=== PATIENT | female | born 1930 | race Caucasian/White ===

== ENCOUNTER 2016-08-22 10:53 | Inpatient (IN) ==
[2016-08-22] MEDS ORDERED: ACETAMINOPHEN 325 MG TABLET PO PRN (11:36)
[2016-08-22] MEDS ORDERED: ONDANSETRON 4 MG/2 ML VIAL IV PRN (11:36)
--- NOTE | 2016-08-22 12:56 | Family Practice History&Phys ---
Assessment and Plan (1) Uncontrolled hypertension Status: Acute Assessment and plan: 08/22/2016: Treatment of her hypertension is underway. Current Visit: Yes (2) Retinal hemorrhage of right eye Status: Acute Assessment and plan: 08/22/2016: Patient has been followed by Dr. Sherman in [place] for this. She will resume care by him after her blood pressure is improved. Current Visit: Yes History of Present Illness Chief complaint: Headache, right eye pain and hypertension History of present illness: Ms. Arredondo is a 86 year old female Patient is 78-year-old white female presents to the office complaining of headache and hypertension. Patient states she recently told her blood pressure is very elevated when she saw the reproduction production manager was found to have a retinal hemorrhage on the right. Her blood pressure was over 200/120 at that time. When she came to the office it was 203/120. Patient is complaining of mild headache which is diffuse but she denies any lateralizing weakness or paresthesias. Patient states he was feeling fine until she started having her headache in this change in her vision. She saw Dr. Sherman in [place] who recommended she come see me which she did today. She denies any chest pain, palpitations or shortness of breath. Home Medications Medication Instructions Recorded Confirmed Type Metoprolol Tartrate 50 mg PO DAILY 01/11/15 01/11/15 History Multivitamin (Centrum) [Centrum 1 tablet PO DAILY 01/11/15 01/11/15 History Tab] Pantoprazole Tab [Protonix Tab] 40 mg PO DAILY@0730 #30 tablet 01/12/15 Rx amLODIPine [Norvasc] 5 mg PO BID tablet 01/12/15 Rx Allergies Allergy/AdvReac Type Severity Reaction Status Date / Time meperidine [From Demerol] AdvReac Mild Nausea Verified 01/11/15 09:51 - Constitutional Constitutional: Absent: chills, fatigue, fever(s), weakness - EENT Eyes: Present: blurry vision, loss of vision Ears: Absent: decreased hearing, ear pain Nose, mouth and throat: Absent: hoarseness, nasal congestion, sinus pressure, sore throat - Cardiovascular Cardiovascular: Absent: chest pain at rest, chest pain with activity, orthopnea , palpitations, PND - Respiratory Respiratory: Absent: cough, dyspnea, wheezing - Gastrointestinal Gastrointestinal: Absent: abdominal pain, diarrhea, dyspepsia, dysphagia, nausea , vomiting - Genitourinary Genitourinary: Absent: difficulty urinating, urinary frequency, urinary hesitancy - Musculoskeletal Musculoskeletal: Absent: arthralgias, back pain - Neurological Neurological: Present: headache(s). Absent: abnormal gait, abnormal speech, confusion, focal weakness, numbness, paresthesias - Psychiatric Psychiatric: Absent: anxiety, confusion, depression - Endocrine Endocrine: Absent: fatigue, polydipsia, polyphagia - Hematologic/Lymphatic Hematologic/Lymphatic: Absent: easy bleeding, easy bruising Medical,Surgical,& Family Hx - Medical History Cardio: History of: Hypertension Neurology: History of: Migraine Gastrointestinal: History of: Diverticulitis/ Diverticulosis No history of: GERD, Gastrointestinal Bleed - Surgical History Abdominal Surgeries: Surgical HX of: Abdominal Surgery (benign tumors removed), Appendectomy, Cholecystectomy Reproductive Surgeries: Surgical HX of;: Section (2), Gynecologic Surgery (she had surgery for pelvic masses on 3 occasions.), Hysterectomy ( complete) - Family History Family History: Reports;: Family Cancer (Brothers, sister, daddy GI ca) Denies;: Family Diabetes, Family Heart Disease, Family Hypertension, Family Psychiatric Problems, Family Stroke - Social History Smoking Status: Never smoker Exam - Constitutional Exam: General: Objective patient is a well-developed white female in no acute distress. Patient is able give an excellent history. HEENT: Pupils equal and reactive to light. Patent nares and airway Neck: No meningismus, adenopathy, thyromegaly. There are no auscultated carotid bruits. Cardiovascular: Regular rhythm. No murmurs or gallops Chest: Clear to auscultation without rales rhonchi wheezes. Abdomen: Soft nontender to palpation No masses, rebound, guarding or tenderness. Neuro: Cranial nerves intact and DTRs and strength symmetric in all extremities. Dermatologic: No evidence of abnormal lesions or masses. Musculoskeletal: There is no joint swelling or tenderness or deformity. Extremities: There is no calf swelling or tenderness.
--- NOTE | 2016-08-22 13:14 | CT Report ---
CT of the head without contrast. Indication: Vision loss. Hypertension. No previous study. There is heavy calcific plaque present within the intracranial internal carotid arteries. The ventricles are normal in size and configuration. There is generalized atrophy of aging. There is no mass effect, midline shift, or area of hemorrhage. There are moderate areas of low density in the periventricular white matter, likely related to chronic microvascular ischemia. No cortical infarcts are seen. The calvarium is intact. The included paranasal sinuses and the mastoid air cells are clear. Impression: Generalized atrophy. White matter changes likely attributable to chronic microvascular ischemia. No acute intracranial process is seen. The CT exam was performed using one or more of the following dose reduction techniques: Automated exposure control, adjustment of the mA and/or kV according to patient size, or use of iterative reconstruction technique. PROCEDURE INTERPRETED AT [facility] DEPARTMENT OF RADIOLOGY Final Report Signed by: Dr. Bettina Mendoza
--- NOTE | 2016-08-22 13:15 | XRay Report ---
2 view chest. Indication: Shortness of breath. Comparison: January 11, 2015. The heart is normal in size. There is a large calcified granuloma in the right lung base, stable in appearance. No consolidation, pneumothorax, or pleural effusion. Exaggerated kyphosis of the thoracic spine with demineralization and degenerative change. Surgical clips in the right upper quadrant. Impression: No acute abnormality. PROCEDURE INTERPRETED AT [facility] DEPARTMENT OF RADIOLOGY Final Report Signed by: Dr. Bettina Mendoza
[2016-08-22] MEDS: hydrALAZINE 20 MG/1 ML VIAL IV PRN ×2 (13:44→21:18)
[2016-08-22] MEDS: SODIUM CHLORIDE 0.45% 1,000 ML IV SCH (13:44)
[2016-08-22 14:17] LABS: Basophils # 0.1 10*3/uL (0.0-0.2); Basophils % 0.8 % (0.0-0.8); Eosinophils # 0.1 10*3/uL (0.0-0.87); Eosinophils % 1.3 % (0.00-10.9); Hematocrit 42.1 VOL% (35.7-47.0); Hemoglobin 13.4 GM/DL (12.0-16.0); Immature Granulocytes % 0.3 %; Immature Granulocytes Absolute 0.02 #; Lymphocytes # 2.1 10*3/uL (1.4-4.0); Lymphocytes % 26.7 % (21.3-54.2); Mean Corpuscular HGB Conc 31.8 GM/DL (32-36); Mean Corpuscular Hemoglobin 27 PG (27-34); Mean Corpuscular Volume 84.2 FL (87-102); Mean Platelet Volume 9.4 FL (9.6-12.0); Monocytes # 0.6 10*3/uL (0.11-0.8); Monocytes % 8.1 % (1.7-12.7); Neutrophils # 4.9 10*3/uL (1.4-7.4); Neutrophils % 62.8 % (38.7-73.9); Platelet Count 186 T/CUMM (130-400); Red Cell Distribution Width 13.7 % (9.3-17.3); White Blood Count 7.8 T/CUMM (4-12)
--- NOTE | 2016-08-22 14:22 | EKG Report ---
Stationary ECG Study [facility] Test Date: 08/22/2016 2:22:08 PM Pat Name: GABRIEL REICH Department: Room: 244 Gender: F Technology Sales Consultant: ELDER : [id number] Requested by: Coleman Carrion Order Number: [id number] Reading MD: JESSEE MCCULLOUGH Intervals [place] Rate: 61 P: 65 NV: 226 QRS: -1 QRSD: 102 T: 95 QT: 437 QTc: 441 Interpretive Statements SINUS RHYTHM FIRST-DEGREE AVB AT 61 BPM INCOMPLETE RIGHT BUNDLE BRANCH BLOCK Electronically Signed On 08-22-16 15:22:21 CDT by JESSEE MCCULLOUGH [email or web address]
[2016-08-22 14:39] LABS: Bilirubin,Total 0.4 MG/DL (0.2-1.0); Calcium 9.5 MG/DL (8.5-10.1); Magnesium 2.2 MG/DL (1.8-2.4); Osmolality,Calculated 282.5 MOS/KG (273-304); Potassium 4.4 MMOL/L (3.5-5.1); Total Protein 7.3 G/DL (6.4-8.3)
[2016-08-22] MEDS: DOCUSATE SODIUM 100 MG CAPSULE PO SCH (21:16)
[2016-08-22] MEDS: traMADol 50 MG TABLET PO PRN (22:21)
--- NOTE | 2016-08-23 07:07 | Family Practice Progress Note ---
Family Practice - PN: Subj Interval history: Patient states she is feeling fairly well this morning still has a mild headache. CT of the brain yesterday revealed no acute abnormality. She has no focal deficits or visual changes. I do not think she needs an MRI. Her blood pressure is much better controlled today. I am going to ask physical therapy to see her so she can ambulate and will check orthostatic vital signs on her as well. Exam (Progress Note) - Constitutional Vitals: Period Temp Pulse Resp BP Sys/Moore Pulse Ox Last 24 Hr 97.1 F-98.0 F 58-64 18-20 135-192/63-93 93-98 Exam: Objectively well-developed white female no acute distress she states she is feeling much better. She is able give an excellent history. Cardiovascular: Heart rates regular without murmurs Respiratory: Lungs clear to auscultation bilaterally. Abdomen: Abdomen soft and nontender to palpation. Neuro exam: Patient has symmetrical strength in all extremities and her cranial nerves were intact. Results - Labs CBC & BMP: 08/22/16 14:06 08/22/16 14:06 Lab Results: I have reviewed the past 24 hour labs Assessment and Plan (1) Uncontrolled hypertension Status: Acute Assessment and plan: 08/22/2016: Treatment of her hypertension is underway. 08/23/2016: Patient's blood pressures improved with present therapy. Will check a renal ultrasound today. Have consulted physical therapy to ambulate her. Current Visit: Yes (2) Retinal hemorrhage of right eye Status: Acute Assessment and plan: 08/22/2016: Patient has been followed by Dr. Sherman in [place] for this. She will resume care by him after her blood pressure is improved. 08/23/2016: Patient is noted no change in her vision. Current Visit: Yes
[2016-08-23 08:13] LABS: Risk Ratio 2.9; VLDL CHOLESTEROL 28.6 MG/DL
--- NOTE | 2016-08-23 09:27 | Ultrasound Report ---
Bilateral renal ultrasound. Indication: Uncontrolled hypertension. The kidneys are normal in size. The right kidney measures 9.5 x 4.3 x 4.8 cm and the left measures 9.7 x 5.3 x 5.4 cm. There is mild cortical thinning bilaterally. Arterial flow is documented to each kidney. No hydronephrosis. There is a peripelvic cyst on the right, measuring 1.3 x 1.9 cm. Impression: Small right renal cyst and mild cortical thinning consistent with aging. PROCEDURE INTERPRETED AT [facility] DEPARTMENT OF RADIOLOGY Final Report Signed by: Dr. Bettina Mendoza
[2016-08-23] MEDS: ASPIRIN EC 81 MG TABLET PO SCH (09:46)
[2016-08-23] MEDS: MULTIVITAMIN (CENTRUM) TABLET PO SCH (09:46)
[2016-08-23] MEDS: DOCUSATE SODIUM 100 MG CAPSULE PO SCH ×2 (09:46→20:40)
[2016-08-23] MEDS: METOPROLOL SUCCINATE XL 50 MG TABLET PO SCH (09:46)
[2016-08-23] MEDS: FUROSEMIDE 40 MG TABLET PO SCH (09:46)
[2016-08-23] MEDS: amLODIPine 10 MG TABLET PO SCH (09:46)
[2016-08-23] MEDS: PANTOPRAZOLE 40 MG TABLET PO SCH (09:46)
[2016-08-23] MEDS: hydrALAZINE 20 MG/1 ML VIAL IV PRN (13:08)
[2016-08-23] MEDS: traMADol 50 MG TABLET PO PRN (14:12)
[2016-08-23 19:44] LABS: Apearance,Urine Slightly Hazy (Clear); Bacteria,Urine Many /HPF (Few); Bilirubin,Urine Negative (Negative); Blood, Urine Negative (Negative); Glucose,Urine (UA) Negative (Negative); Hyaline Casts,Urine 4 /LPF (0-3); Ketones,Urine Negative (Negative); Mucus,Urine Occasional /LPF (Occasional); Nitrite,Urine Negative (Negative); Protein,Urine Negative; RBC,Urine 1 /HPF (0-4); Squamous Epithelial Cell,Urine Occasional /HPF (0-10); Urine Color Yellow (Yellow); Urine Specific Gravity 1.009 (1.001-1.035); Urine Urobilinogen < 2.0 EU/DL (0.2-1.0); WBC,Urine 16 /HPF (0-6)
[2016-08-23] MEDS: SODIUM CHLORIDE 0.45% 1,000 ML IV SCH (20:40)
--- NOTE | 2016-08-24 07:54 | Family Practice Progress Note ---
Family Practice - PN: Subj Interval history: Patient states she is feeling some better but she developed nausea and vomiting yesterday and has some blood on the tissue when she wipes. She want to get everything checked out when she was in the hospital and told her I would relationship counselor Dr. King. I reassured her that her blood counts were normal and she had no evidence of any liver issues. States she is no longer having headaches for blood pressure is markedly improved. Exam (Progress Note) - Constitutional Vitals: Period Temp Pulse Resp BP Sys/Moore Pulse Ox Last 24 Hr 97.8 F-98.2 F 60-72 18-20 119-197/74-83 93-95 Exam: Objectively well-developed white female no acute distress she states she is feeling much better. She tells me she has been having some blood when she has a bowel movement. Cardiovascular: Heart rates regular without murmurs Respiratory: Lungs clear to auscultation bilaterally. Abdomen: Abdomen soft and nontender to palpation. Neuro exam: Patient has symmetrical strength in all extremities and her cranial nerves were intact. Results - Labs CBC & BMP: 08/22/16 14:06 08/22/16 14:06 Lab Results: I have reviewed the past 24 hour labs Assessment and Plan (1) Uncontrolled hypertension Status: Acute Assessment and plan: 08/22/2016: Treatment of her hypertension is underway. 08/23/2016: Patient's blood pressures improved with present therapy. Will check a renal ultrasound today. Have consulted physical therapy to ambulate her. 08/24/2016: Patient tells me she is having some rectal bleeding. This is just on the tissue. Her blood pressure is markedly improved and she is no longer having headaches. Current Visit: Yes (2) Retinal hemorrhage of right eye Status: Acute Assessment and plan: 08/22/2016: Patient has been followed by Dr. Sherman in [place] for this. She will resume care by him after her blood pressure is improved. 08/23/2016: Patient is noted no change in her vision. Current Visit: Yes
--- NOTE | 2016-08-24 09:26 | Gastrointestinal Consult Note ---
Assessment and Plan (1) Rectal bleed Status: Acute Assessment and plan: 08/24-Bright red blood on tissue with wiping, burning, pain x several months. No other associated symptoms. Last c-scope in 2007 with diverticulosis. Family hx of colon cancer in sister. Stool for occult blood. Plan and addendum to follow by DR King. Current Visit: Yes History of Present Illness Chief complaint: Rectal bleed History of present illness: Ms. Arredondo is a 86 year old female who presented to the hospital with onset of headache and elevated blood pressure. Pt states that her blood pressure has been elevated recently and has been followed by Dr Sherman in [place] for retinal hemmorhage. She was admitted for further workup regarding this. On yesterday morning, pt had an onset of nausea and vomiting x 1 without abdominal pain. She states she did have a migraine on yesterday and this is common for her with a migraine. This is resolved today. She denies any coffee ground or hematemesis with this. Pt also brought forth that she has had some bright red blood noted on the tissue when she cleans herself after a bowel movement for a long time now. She states she never has rectal bleeding between bowel movements and has not noted any blood in her stool or the commode. She has burning and pain as well with bowel movements. She denies any changes in her bowel habits recently. She is concerned due to her sister had colon cancer in the past and she states this is how her cancer started. She denies any recent weight loss, fever or chills. Denies any melena or hematochezia. She denies any NSAID use. States she only takes a blood pressure pill and baby aspirin daily. Her last C-scope [place] [address] Rodrigues with findings of diverticulosis. She had an EGD in 2007 with stricture and dilation. She is noted to have gram negative rods in her urine. Hemoglobin is stable at 13.4 Home Medications Medication Instructions Recorded Confirmed Type Metoprolol Tartrate 50 mg PO DAILY 01/11/15 08/22/16 History Aspirin [Ecotrin] 81 mg PO DAILY 08/22/16 08/22/16 History Tramadol HCl [Tramadol Tab] 50 mg PO DAILY PRN 08/22/16 08/22/16 History Allergies Allergy/AdvReac Type Severity Reaction Status Date / Time meperidine [From Demerol] AdvReac Mild Nausea Verified 01/11/15 09:51 Medical,Surgical,& Family Hx - Medical History Cardio: History of: Hypertension Neurology: History of: Migraine Gastrointestinal: History of: Diverticulitis/ Diverticulosis No history of: GERD, Gastrointestinal Bleed - Surgical History Abdominal Surgeries: Surgical HX of: Abdominal Surgery (benign tumors removed), Appendectomy, Cholecystectomy Reproductive Surgeries: Surgical HX of;: Section (2), Gynecologic Surgery (she had surgery for pelvic masses on 3 occasions.), Hysterectomy ( complete) - Family History Family History: Reports;: Family Cancer (Brothers, sister, daddy GI ca) Denies;: Family Diabetes, Family Heart Disease, Family Hypertension, Family Psychiatric Problems, Family Stroke - Social History Smoking Status: Never smoker Frequency of Alcohol Use: None Type of Drug Use: None 12 point system: reviewed and no additional remarkable complaints except as stated - Constitutional Constitutional: Present: as per HPI - EENT Eyes: Present: as per HPI Ears: Present: as per HPI Nose, mouth and throat: Present: as per HPI - Cardiovascular Cardiovascular: Present: as per HPI - Respiratory Respiratory: Present: as per HPI - Gastrointestinal Gastrointestinal: Present: as per HPI, hematochezia, other - Genitourinary Genitourinary: Present: as per HPI - Musculoskeletal Musculoskeletal: Present: as per HPI - Neurological Neurological: Present: as per HPI - Psychiatric Psychiatric: Present: as per HPI - Endocrine Endocrine: Present: as per HPI - Hematologic/Lymphatic Hematologic/Lymphatic: Present: as per HPI Exam - Constitutional Vitals: Period Temp Pulse Resp BP Sys/Moore Pulse Ox Last 24 Hr 97.8 F-98.2 F 60-72 18-20 119-197/74-83 93-95 General appearance: normal weight, no acute distress - Head Head exam: Present: normal inspection, normocephalic - Eye Eye exam: Present: other (lids and conjunctiva unremarkable). Absent: scleral icterus - ENT ENT exam: Present: normal exam, normal oropharynx - Neck Neck exam: Present: normal inspection - Respiratory Respiratory exam: Present: clear to auscultation bilaterally. Absent: rales, rhonchi, wheezes - Cardiovascular Cardiovascular exam: Present: regular rate and rhythm. Absent: diastolic murmur , JVD, systolic murmur - GI/Abdominal GI/Abdominal exam: Present: normal bowel sounds, soft. Absent: ascites, distended, mass, organomegaly, tenderness - Extremities Exam Extremities exam: Present: normal inspection, full ROM - Back Exam Back exam: Present: normal inspection - Neurological Exam Neurological exam: Present: alert, oriented X3 - Psychiatric Psychiatric exam: Present: normal affect, normal mood - Skin Skin exam: Present: normal color, warm, dry Results - Labs CBC & BMP: 08/22/16 14:06 08/22/16 14:06 Lab Results: I have reviewed the past 24 hour labs
[2016-08-24] MEDS: ASPIRIN EC 81 MG TABLET PO SCH (09:28)
[2016-08-24] MEDS: PANTOPRAZOLE 40 MG TABLET PO SCH (09:28)
[2016-08-24] MEDS: amLODIPine 10 MG TABLET PO SCH (09:28)
[2016-08-24] MEDS: DOCUSATE SODIUM 100 MG CAPSULE PO SCH ×2 (09:28→21:10)
[2016-08-24] MEDS: METOPROLOL SUCCINATE XL 50 MG TABLET PO SCH (09:28)
[2016-08-24] MEDS: FUROSEMIDE 40 MG TABLET PO SCH (09:28)
[2016-08-24] MEDS: MULTIVITAMIN (CENTRUM) TABLET PO SCH (09:28)
--- NOTE | 2016-08-24 09:28 | CT Report ---
History is abdominal pain with rectal bleeding 100 cc Omni 350 utilized Comparison 01/11/2015 Minimal scarring and dense calcification in the right lung base again seen. Tiny liver cyst again seen. No new defects seen in the liver, spleen, pancreas, adrenals, or kidneys. Miniscule renal cyst again noted. There are clips in the gallbladder fossa No enlarged retroperitoneal nodes seen. There are diverticuli throughout the colon Pelvis: There are extensive diverticuli in sigmoid colon. No free fluid or focal inflammatory changes seen. Impression: 1. Extensive diverticulosis 2. Prior cholecystectomy The CT exam was performed using one or more of the following dose reduction techniques: Automated exposure control, adjustment of the mA and/or kV according to patient size, or use of iterative reconstruction technique. PROCEDURE INTERPRETED AT [facility] DEPARTMENT OF RADIOLOGY Final Report Signed by: Dr. Cherry Mendoza
[2016-08-24] MEDS ORDERED: ZALEPLON 5 MG CAPSULE PO PRN (21:43)
--- NOTE | 2016-08-25 07:16 | Discharge Summary ---
Hospital Course - Hospital Course Hospital Course: Patient's 86-year-old white female admitted to the hospital through my office with complaint of headache and elevated blood pressure. Patient has a history of retinal hemorrhage and it was felt that urgent reduction in her blood pressure was necessary. Patient was also complaining of some abdominal pain and rectal bleeding. Patient underwent CT of the brain and CT of the abdomen and pelvis revealed no acute abnormality on either study. Patient's blood pressure was managed with oral antibiotics primarily and she responded very well. Patient seen in consultation by Dr. Carlos iKng who found her to have a anal fissure. She has had a fairly recent colonoscopy in 2006. This revealed diverticular disease which was also seen on her CT scan. I will follow the patient in the office in 2 weeks time. Discharge meds per discharge medication list. Diagnosis - Discharge Diagnosis (1) Uncontrolled hypertension Status: Acute (2) Retinal hemorrhage of right eye Status: Acute (3) Rectal bleed Status: Acute Discharge Plan - Discharge Data Disposition: Disch To Home/Self Care Condition at Discharge: Stable Discharge Diet: advance to your usual diet Activity: resume usual activities as tolerated Hygiene: no restrictions Weight Bearing at Discharge: full weight bearing Contact your physician if you experience:: fever over 101 - Discharge Medications New Acetaminophen Tab [Tylenol Tab] 650 mg PO Q6H PRN #0 tablet PRN Reason: Fever > 100.4 Or Headache Furosemide Tab [Lasix Tab] 40 mg PO DAILY #30 tablet Metoprolol Succinate Xl [Toprol Xl] 50 mg PO DAILY #30 tablet Multivitamin (Centrum) [Centrum Tab] 1 tablet PO DAILY tablet amLODIPine [Norvasc] 10 mg PO DAILY #30 tablet Levofloxacin Tab [Levaquin Tab] 250 mg PO DAILY #7 tablet Continue Aspirin [Ecotrin] 81 mg PO DAILY Tramadol HCl [Tramadol Tab] 50 mg PO DAILY PRN PRN Reason: Pain Discontinued Metoprolol Tartrate 50 mg PO DAILY - Follow Up or Referral Follow Up: Cheo King MD [Physician] - 2 Weeks Aldo Miller MD [Primary Care Provider] - 2 Weeks - Forms/Instructions Exam - Constitutional Vitals: Period Temp Pulse Resp BP Sys/Moore Pulse Ox Last 24 Hr 96.8 F-99.4 F 55-69 20-20 127-167/60-83 94-99 Exam: Objectively well-developed white female no acute distress she states she is feeling much better. She has not seen any blood in her stool last night. Cardiovascular: Heart rates regular without murmurs Respiratory: Lungs clear to auscultation bilaterally. Abdomen: Abdomen soft and nontender to palpation. Neuro exam: Patient has symmetrical strength in all extremities and her cranial nerves were intact. Discharge Results Procedures and tests throughout hospitalization: Pending Orders 08/23/16 Urine Culture Routine 08/24/16 09:28 Occult Blood, Stool Routine Labs on day of discharge: Preliminary micro results at discharge 08/23/16 Unknown Urine Culture - Preliminary Urine,Voided Gram Negative Rods Cultures positive for Klebsiella pneumoniae which is resistant to ampicillin. DS: Provider Date of admission: 08/22/16 12:03 Primary care physician: Aldo Miller MD Attending physician on admission: Aldo Miller MD Consults: 08/22/16 11:37 Consult to Case Mgmt/Social Srvs [CONS] Routine Reason for Case Mgmt/Social Srvs: Discharge Planning 08/22/16 13:28 Consult to Pharmacy [CONS] Routine Reason for Pharmacy Consult: Adjust Meds Renal Funct 08/23/16 07:02 Consult to Physical Therapy [CONS] Routine Reason for Physical Therapy: Ambulation 08/24/16 07:38 Consult to Physician [CONS] Routine Comment: Consulting Provider: Cheo King Discharging clinician: Aldo Miller MD Expected date of discharge: 08/25/16
[2016-08-25] MEDS: ASPIRIN EC 81 MG TABLET PO SCH (08:40)
[2016-08-25] MEDS: DOCUSATE SODIUM 100 MG CAPSULE PO SCH (08:40)
[2016-08-25] MEDS: PANTOPRAZOLE 40 MG TABLET PO SCH (08:40)
[2016-08-25] MEDS: MULTIVITAMIN (CENTRUM) TABLET PO SCH (08:40)
[2016-08-25] MEDS: FUROSEMIDE 40 MG TABLET PO SCH (08:40)
[2016-08-25] MEDS: METOPROLOL SUCCINATE XL 50 MG TABLET PO SCH (08:40)
[2016-08-25] MEDS: amLODIPine 10 MG TABLET PO SCH (08:40)
[2016-08-25] MEDS: SODIUM CHLORIDE 0.45% 1,000 ML IV SCH (08:41)
[2016-08-25 09:00] VITALS: BP 156/81
[2016-08-25] MEDS ORDERED: LEVOFLOXACIN 250 MG TABLET PO SCH (09:00)
== END 2016-08-25 11:24 | disposition home or self-care (01) | DRG 305 ==
LOC: N.2E 12:03
PROVIDERS: ADMIT Family Medicine; ATTEND Family Medicine

== ENCOUNTER 2018-04-11 09:27 | Inpatient (IN) ==
[2018-04-11] MEDS ORDERED: ONDANSETRON 4 MG/2 ML VIAL ONE (11:00)
[2018-04-11] MEDS ORDERED: MORPHINE 4 MG/1 ML VIAL ONE (11:01)
[2018-04-11] MEDS ORDERED: MORPHINE 4 MG/1 ML VIAL IV STA (11:12)
[2018-04-11] MEDS ORDERED: ONDANSETRON 4 MG/2 ML VIAL IV STA (11:12)
[2018-04-11 11:25] LABS: Basophils # 0.1 10*3/uL (0.0-0.2); Basophils % 0.4 % (0.0-0.8); Eosinophils % 0.1 % (0.00-10.9); Hematocrit 41.4 VOL% (35.7-47.0); Hemoglobin 13.5 GM/DL (12.0-16.0); Immature Granulocytes % 0.7 %; Immature Granulocytes Absolute 0.08 #; Lymphocytes # 0.9 10*3/uL (1.4-4.0); Lymphocytes % 7.3 % (21.3-54.2); Mean Corpuscular HGB Conc 32.6 GM/DL (32-36); Mean Corpuscular Hemoglobin 28 PG (27-34); Mean Corpuscular Volume 85.5 FL (87-102); Mean Platelet Volume 9.3 FL (9.6-12.0); Monocytes # 0.5 10*3/uL (0.11-0.8); Monocytes % 3.8 % (1.7-12.7); Neutrophils # 10.8 10*3/uL (1.4-7.4); Neutrophils % 87.7 % (38.7-73.9); Platelet Count 199 T/CUMM (130-400); Red Blood Count 4.84 MC/CUMM (3.8-5.5); White Blood Count 12.3 T/CUMM (4-12)
[2018-04-11 11:51] LABS: Alanine Aminotransferase 29 U/L (13-56); Albumin 4.1 G/DL (3.4-5.0); Alkaline Phosphatase 99 U/L (45-117); Aspartate Amino Transferase 28 U/L (0-37); Blood Urea Nitrogen 24 MG/DL (7-18); Calcium 10.1 MG/DL (8.5-10.1); Glucose 109 MG/DL (74-106); Osmolality,Calculated 285.3 MOS/KG (273-304); Potassium 4.5 MMOL/L (3.5-5.1); Sodium 141 MMOL/L (136-145); Total Protein 8.6 G/DL (6.4-8.3); Troponin I < 0.015 NG/ML (0.00-0.045)
[2018-04-11] MEDS ORDERED: ONDANSETRON 4 MG/2 ML VIAL IV PRN (12:01)
[2018-04-11] MEDS: SODIUM CHLORIDE 0.9% 1,000 ML IV SCH ×3 (12:22→22:50)
[2018-04-11] MEDS ORDERED: hydrALAZINE 20 MG/1 ML VIAL IV PRN (14:31)
[2018-04-11] MEDS ORDERED: METOPROLOL TARTRATE 5 MG/5 ML VIAL IV ONE (14:32)
[2018-04-11] MEDS: HYDROmorphone 2 MG/1 ML VIAL IV PRN (16:15)
[2018-04-12] MEDS: traMADol 50 MG TABLET PO PRN ×2 (03:09→22:33)
[2018-04-12 03:39] LABS: Basophils # 0.1 10*3/uL (0.0-0.2); Basophils % 0.6 % (0.0-0.8); Eosinophils # 0.2 10*3/uL (0.0-0.87); Eosinophils % 1.8 % (0.00-10.9); Hematocrit 36.9 VOL% (35.7-47.0); Hemoglobin 11.9 GM/DL (12.0-16.0); Immature Granulocytes % 0.6 %; Immature Granulocytes Absolute 0.06 #; Lymphocytes # 1.3 10*3/uL (1.4-4.0); Lymphocytes % 13.7 % (21.3-54.2); Mean Corpuscular HGB Conc 32.2 GM/DL (32-36); Mean Corpuscular Hemoglobin 28 PG (27-34); Mean Corpuscular Volume 85.6 FL (87-102); Mean Platelet Volume 9.5 FL (9.6-12.0); Monocytes # 0.7 10*3/uL (0.11-0.8); Monocytes % 6.9 % (1.7-12.7); Neutrophils # 7.3 10*3/uL (1.4-7.4); Neutrophils % 76.4 % (38.7-73.9); Platelet Count 183 T/CUMM (130-400); Red Blood Count 4.31 MC/CUMM (3.8-5.5); White Blood Count 9.6 T/CUMM (4-12)
[2018-04-12 03:48] LABS: PT Patient Result 10.4 SECS
[2018-04-12 03:53] LABS: Calcium 8.8 MG/DL (8.5-10.1); Osmolality,Calculated 278.5 MOS/KG (273-304); Potassium 4.1 MMOL/L (3.5-5.1)
[2018-04-12] MEDS ORDERED: TRANEXAMIC ACID 1,000 MG/10 ML VIAL ONE ×2 (07:34→08:17)
[2018-04-12] MEDS ORDERED: VANCOMYCIN 1,000 MG VIAL ONE (08:15)
[2018-04-12] MEDS ORDERED: MORPHINE 10 MG/1 ML VIAL IV PRN (08:29)
[2018-04-12] MEDS ORDERED: diphenhydrAMINE 50 MG/1 ML VIAL IV PRN (08:29)
[2018-04-12] MEDS ORDERED: PROMETHAZINE INJ 25 MG in SODIUM CHLORIDE 0.9% 50 ML IV PRN (08:29)
[2018-04-12] MEDS ORDERED: ONDANSETRON 4 MG/2 ML VIAL IV PRN (08:29)
[2018-04-12] MEDS ORDERED: HYDROmorphone 2 MG/1 ML VIAL IV PRN (08:29)
[2018-04-12] MEDS ORDERED: ROPIVACAINE 0.5% 30 ML VIAL ONE (10:21)
[2018-04-12] MEDS ORDERED: SEVOFLURANE 1 UNIT/15 MINUTE INH ONE (10:58)
[2018-04-12] MEDS ORDERED: fentaNYL 100 MCG/2 ML VIAL ONE (10:58)
[2018-04-12] MEDS ORDERED: ETOMIDATE 40 MG/20 ML VIAL IV ONE (10:58)
[2018-04-12] MEDS ORDERED: PHENYLEPHRINE 10 MG/1 ML VIAL IV ONE (10:58)
[2018-04-12] MEDS ORDERED: ONDANSETRON 4 MG/2 ML VIAL ONE (10:58)
[2018-04-12] MEDS ORDERED: ACETAMINOPHEN 1,000 MG/100 ML VIAL IV ONE (10:58)
[2018-04-12] MEDS ORDERED: ROCURONIUM 100 MG/10 ML VIAL IV ONE (10:59)
[2018-04-12] MEDS: SODIUM CHLORIDE 0.9% 1,000 ML IV SCH ×2 (11:19→22:33)
[2018-04-12] MEDS: HYDROmorphone 2 MG/1 ML VIAL IV PRN (11:53)
[2018-04-12] MEDS ORDERED: POLYVINYL ALCOHOL 1.4% OPH SOLN 15 ML BOTTLE RIGHT EYE PRN (12:19)
[2018-04-12] MEDS ORDERED: OFLOXACIN 0.3% OPH SOLN 10 ML BOTTLE RIGHT EYE PRN (12:19)
[2018-04-12] MEDS: ceFAZolin 1,000 MG in SYRINGE 1 EACH IV SCH ×2 (13:00→20:26)
[2018-04-13] MEDS: ASPIRIN 325 MG TABLET PO SCH (08:31)
[2018-04-13 09:59] LABS: Basophils # 0.1 10*3/uL (0.0-0.2); Basophils % 0.5 % (0.0-0.8); Eosinophils # 0.1 10*3/uL (0.0-0.87); Eosinophils % 0.5 % (0.00-10.9); Hematocrit 32.2 VOL% (35.7-47.0); Hemoglobin 10.5 GM/DL (12.0-16.0); Immature Granulocytes % 0.8 %; Immature Granulocytes Absolute 0.07 #; Lymphocytes # 1.4 10*3/uL (1.4-4.0); Lymphocytes % 14.7 % (21.3-54.2); Mean Corpuscular HGB Conc 32.6 GM/DL (32-36); Mean Corpuscular Hemoglobin 29 PG (27-34); Mean Corpuscular Volume 87.7 FL (87-102); Mean Platelet Volume 9.7 FL (9.6-12.0); Monocytes # 0.9 10*3/uL (0.11-0.8); Monocytes % 9.2 % (1.7-12.7); Neutrophils # 6.9 10*3/uL (1.4-7.4); Neutrophils % 74.3 % (38.7-73.9); Platelet Count 139 T/CUMM (130-400); Red Blood Count 3.67 MC/CUMM (3.8-5.5); Red Cell Distribution Width 12.8 % (9.3-17.3); White Blood Count 9.3 T/CUMM (4-12)
[2018-04-13 10:20] LABS: Calcium 8.5 MG/DL (8.5-10.1); Osmolality,Calculated 279.5 MOS/KG (273-304); Potassium 4.2 MMOL/L (3.5-5.1)
[2018-04-13] MEDS: SODIUM CHLORIDE 0.9% 1,000 ML IV SCH ×3 (11:35→19:43)
[2018-04-13] MEDS: traMADol 50 MG TABLET PO PRN (15:17)
[2018-04-13] MEDS: rOPINIRole 1 MG TABLET PO SCH (18:48)
[2018-04-13] MEDS: HYDROmorphone 2 MG/1 ML VIAL IV PRN (19:44)
[2018-04-14 05:31] LABS: Basophils # 0.1 10*3/uL (0.0-0.2); Basophils % 0.5 % (0.0-0.8); Eosinophils % 0.4 % (0.00-10.9); Hematocrit 30.7 VOL% (35.7-47.0); Hemoglobin 9.6 GM/DL (12.0-16.0); Immature Granulocytes % 0.6 %; Immature Granulocytes Absolute 0.06 #; Lymphocytes # 1.2 10*3/uL (1.4-4.0); Lymphocytes % 12.9 % (21.3-54.2); Mean Corpuscular HGB Conc 31.3 GM/DL (32-36); Mean Corpuscular Hemoglobin 27 PG (27-34); Mean Corpuscular Volume 87.7 FL (87-102); Mean Platelet Volume 9.5 FL (9.6-12.0); Monocytes # 0.9 10*3/uL (0.11-0.8); Monocytes % 9.1 % (1.7-12.7); Neutrophils # 7.3 10*3/uL (1.4-7.4); Neutrophils % 76.5 % (38.7-73.9); Platelet Count 136 T/CUMM (130-400); Red Cell Distribution Width 12.6 % (9.3-17.3); White Blood Count 9.5 T/CUMM (4-12)
[2018-04-14 05:52] LABS: Calcium 8.4 MG/DL (8.5-10.1); Osmolality,Calculated 279.5 MOS/KG (273-304); Potassium 3.8 MMOL/L (3.5-5.1)
[2018-04-14] MEDS: SODIUM CHLORIDE 0.9% 1,000 ML IV SCH ×3 (07:45→20:38)
[2018-04-14] MEDS: MULTIVITAMIN (CENTRUM) TABLET PO SCH (08:58)
[2018-04-14] MEDS: FUROSEMIDE 20 MG TABLET PO SCH (09:00)
[2018-04-14] MEDS: ASPIRIN 325 MG TABLET PO SCH (09:00)
[2018-04-14] MEDS: traMADol 50 MG TABLET PO PRN (14:01)
[2018-04-14] MEDS: rOPINIRole 1 MG TABLET PO SCH (17:35)
[2018-04-15 05:27] LABS: Basophils # 0.1 10*3/uL (0.0-0.2); Basophils % 0.7 % (0.0-0.8); Eosinophils # 0.2 10*3/uL (0.0-0.87); Eosinophils % 2.2 % (0.00-10.9); Hemoglobin 9.1 GM/DL (12.0-16.0); Immature Granulocytes % 0.6 %; Immature Granulocytes Absolute 0.05 #; Lymphocytes # 1.4 10*3/uL (1.4-4.0); Lymphocytes % 16.9 % (21.3-54.2); Mean Corpuscular HGB Conc 32.5 GM/DL (32-36); Mean Corpuscular Hemoglobin 28 PG (27-34); Mean Corpuscular Volume 85.6 FL (87-102); Mean Platelet Volume 9.6 FL (9.6-12.0); Monocytes # 0.8 10*3/uL (0.11-0.8); Monocytes % 9.2 % (1.7-12.7); Neutrophils # 5.8 10*3/uL (1.4-7.4); Neutrophils % 70.4 % (38.7-73.9); Platelet Count 164 T/CUMM (130-400); Red Blood Count 3.27 MC/CUMM (3.8-5.5); Red Cell Distribution Width 12.3 % (9.3-17.3); White Blood Count 8.2 T/CUMM (4-12)
[2018-04-15 06:01] LABS: Calcium 8.1 MG/DL (8.5-10.1); Osmolality,Calculated 277.5 MOS/KG (273-304); Potassium 3.4 MMOL/L (3.5-5.1)
[2018-04-15 06:03] LABS: Apearance,Urine CLOUDY (Clear); Bacteria,Urine Occasional /HPF (Few); Bilirubin,Urine Negative (Negative); Blood, Urine Negative (Negative); Glucose,Urine (UA) Negative (Negative); Ketones,Urine Negative (Negative); Mucus,Urine Few /LPF (Occasional); Nitrite,Urine Negative (Negative); Protein,Urine Negative; RBC,Urine 40 /HPF (0-4); Squamous Epithelial Cell,Urine Many /HPF (0-10); Urine Color Yellow (Yellow); Urine Specific Gravity 1.014 (1.001-1.035); Urine Urobilinogen < 2.0 EU/DL (0.2-1.0); WBC,Urine 13 /HPF (0-6)
[2018-04-15] MEDS: SODIUM CHLORIDE 0.9% 1,000 ML IV SCH ×2 (06:05→07:45)
[2018-04-15] MEDS: ASPIRIN 325 MG TABLET PO SCH (09:24)
[2018-04-15] MEDS: MULTIVITAMIN (CENTRUM) TABLET PO SCH (09:24)
[2018-04-15] MEDS: traMADol 50 MG TABLET PO PRN (09:25)
[2018-04-15] MEDS: FUROSEMIDE 20 MG TABLET PO SCH (09:25)
[2018-04-15] MEDS ORDERED: TUBERCULIN SKIN TEST 0.1 ML SYRINGE INTRADERM ONE (10:00)
[2018-04-15 12:00] VITALS: BP 144/59
[2018-04-15] MEDS ORDERED: BISACODYL 10 MG SUPP RECTAL ONE (12:05)
== END 2018-04-15 13:45 | disposition swing bed (61) | DRG 470 ==
LOC: N.ED 09:27 → N.EDINP 12:00 → N.3E 12:26
PROVIDERS: ADMIT Family Medicine; ATTEND Family Medicine